=== PATIENT | male | born 1940 | race Caucasian/White ===

== ENCOUNTER 2016-12-14 08:04 | Emergency (ER) | payer MEDICARE ==
[2016-12-14 08:22] VITALS: BP 169/84
--- NOTE | 2016-12-14 08:47 | UC ---
Ronal Gonzáles Anna, scribed for [facility]Merlin MD on 12/14/16 at 0833 . Back Pain HPI - HPI Summary HPI Summary: MD Note Patient was seen at [facility] 02/16/2016 with back and chest discomfort. Dx was lumbar strain and costochondritis. EKG showed NSR with a first-degree AV block (MA prolongation), with no ischemia. Vital signs stable. Afebrile. BP noted at 169/ 84.Pt has chronic HTN. Pulse ox 99. 6/10 right lumbar discomfort. Daily wine, nonsmoker. Pt has COPD and asthma. Nurses Note BENDING OVER TO DO LAUNDRY A WK AGO, HAD PAIN RIGHT LOWER BACK. BENT OVER AGAIN A COUPLE DAYS LATER AND PAIN RETURNED, AND HAS BEEN THERE SINCE. PT STATES PAIN INCREASES WITH STANDING UP STRAIGHT, FEELS BETTER WHEN LAYIN IN BED. WAS GOING TO THE GYM PRIOR TO HAVING PAIN. HAS HAD BACK PAIN 3 DIFFERENT TIMES IN PAST COUPLE MONTHS. In Room Note Patient is a 76 y/o [place] [facility] [place] with sudden onset of acute on chronic RIGHT LOWER BACK PAIN that began six days ago. He describes the pain as aching with severity 6/10. He was bending over to do laundry when he felt sudden pain in his right lumbar region. He did not hear a pop. He did not experience any burning pain down his leg. The pain was originally experienced as spasms. The pain is EXACERBATED BY STANDING, ARCHING BACK, OR WALKING. The pain is ALLEVIATED BY LYING DOWN. The pain is not alleviated by the use of ibuprofen. He has some abdominal pain. Denies CP, SOB, n/v/d, or changes in urination. He has been fighting a COUGH since . He has a history of back pain. - History of Current Complaint Stated Complaint: BACK PAIN Time Seen by Provider: 12/14/16 08:16 Hx Obtained From: Patient Onset/Duration: Sudden Onset, Still Present Pain Intensity: 6 Pain Scale Used: 0-10 Numeric - Allergies/Home Medications Allergies/Adverse Reactions: Allergies Allergy/AdvReac Type Severity Reaction Status Date / Time CAT DANDER Allergy Unknown Uncoded 04/28/16 09:03 Reaction Details PMH/Surg Hx/FS Hx/Imm Hx Endocrine History Of: Reports: Dyslipidemia Denies: Diabetes, Thyroid Disease, Hyperthyroidism, Hypothyroidism Cardiovascular History Of: Reports: Hypertension - pt. states controlled on meds Denies: Cardiac Disorders, Pacemaker/ICD, Myocardial Infarction, Congestive Heart Failure, Atrial Fibrillation, Deep Vein Thrombosis, Bleeding Disorders Respiratory History Of: Reports: COPD - takes advir., Asthma Denies: Bronchitis, Pneumonia, Pulmonary Embolism GI/ History Of: Denies: Gastroesophageal Reflux, Ulcer, Gastrointestinal Bleed, Gall Bladder Disease, Kidney Stones, Diverticulitis, Renal Disease, Urosepsis Neurological History Of: Denies: TIA, CVA, Dementia, Seizures, Migraine Psychological History Of: Denies: Anxiety, Depression, Bipolar Disorder, Schizophrenia, Post Traumatic Stress Disorder Cancer History Of: Denies: Lung Cancer, Colorectal Cancer, Breast Cancer, Prostate Cancer, Cervical Cancer Other History Of: Negative For: HIV, Hepatitis B, Hepatitis C - Surgical History Surgical History: Yes Surgery Procedure, Year, and Place: LEFT INGUNIAL HERNIA 2008, [facility]. RIGHT ORCHIECTOMY, , [facility]. DEVIATED SEPTUM. ,. prostatectomy 2011. [facility] - Family History Known Family History: Positive: Cardiac Disease, Hypertension, Other - [place] Negative: Blood Disorder - Social History Occupation: Retired Alcohol Use: Daily Alcohol Amount: wine/dinner Substance Use Type: None Smoking Status (MU): Never Smoked Tobacco - Immunization History Most Recent Tetanus Shot: 10/15/1994 Review of Systems Constitutional: Negative Skin: Negative Eyes: Negative ENT: Negative Respiratory: Cough Cardiovascular: Negative Gastrointestinal: Abdominal Pain Genitourinary: Negative Motor: Negative Neurovascular: Negative Musculoskeletal: Myalgia Neurological: Negative Psychological: Negative All Other Systems Reviewed And Are Negative: Yes Physical Exam Triage Information Reviewed: Yes Appearance: Well-Appearing, No Pain Distress, Well-Nourished Vital Signs: Initial Vital Signs Temp 98.7 F 12/14/16 08:15 Pulse 82 12/14/16 08:15 Resp 18 12/14/16 08:15 BP 169/84 12/14/16 08:15 Pulse Ox 99 12/14/16 08:15 Vital Signs Reviewed: Yes Eyes: Positive: Conjunctiva Clear ENT: Positive: Hearing grossly normal, Pharynx normal, TMs normal. Negative: Muffled/hoarse voice Neck: Positive: Supple, No Lymphadenopathy Respiratory: Positive: Chest non-tender, Lungs clear, Normal breath sounds, No respiratory distress Cardiovascular: Positive: RRR, No Murmur Abdomen Description: Positive: No Organomegaly, Soft, Other: - Light, diffuse abd tenderness Bowel Sounds: Positive: Present Musculoskeletal: Positive: Strength Intact, Other: - PAUL. No CVA tenderness. Pain upon arching back. Neurological: Positive: Alert Psychological: Positive: Age Appropriate Behavior Skin: Negative: rashes Back Pain Course/Dx - Course Course Of Treatment: Discussed use of hot and cold to alleviate pain. Patient reports Acetaminophen upsets his stomach. Recommended use of ibuprofen. - Differential Dx/Diagnosis Differential Diagnosis/HQI/PQRI: Other - nerve impingement v. muscle strain Provider Diagnoses: R. Lumbar muscle strain Discharge - Discharge Plan Condition: Stable Disposition: HOME Prescriptions: Dexamethasone TAB* [Decadron TAB*] 4 mg PO DAILY #4 tab Patient Education Materials: Low Back Strain (ED), Lower Back Exercises (ED) Referrals: Luis Armando Ortega MD [Primary Care Provider] - Additional Instructions: WE DISCUSSED: BACK STRAIN Your pain is consistent with a muscle injury to your right lower back. Re-check at any time for increased pain or disability or if this condition is not improving in 7 days. I have prescribed Physical Therapy as well as two days of dexamethasone. Use warm moist heat in the morning; ice massage to the area if it starts to hurt during the day. Try alternating ice/heat/ice for pain. PHYSICAL THERAPY REFERRAL: This is your referral to a physical therapist. +++Reduction of Swelling (EGS, US, ice as needed) +++Pain Reduction (EGS, US, ice as needed) +++[facility] -Your diagnosis is: strain/sprain/right lumbar region. -Duration of therapy: two weeks or until resolution of condition. -Your physician re-evaluation needs to be arranged by you. The documentation as recorded by the Ronal alejo Anna accurately reflects the service I personally performed and the decisions made by me, Merlin Hooper MD.
== END 2016-12-14 08:52 | disposition home or self-care (01) ==
LOC: UCEAST 08:04
DX: S39.012A Strain of muscle, fascia and tendon of lower back, initial encounter (principal); X50.1XXA Overexertion from prolonged static or awkward postures, initial encounter; Y93.E2 Activity, laundry; Y92.9 Unspecified place or not applicable; I10 Essential (primary) hypertension; J44.9 Chronic obstructive pulmonary disease, unspecified
CPT/HCPCS: 99212; G0463

== ENCOUNTER → 2018-08-21 07:41 | Day surgery (SDC) | payer MEDICARE ==
[~2018-08-21 07:41] MED LIST: Bacitracin OINTMENT* 0.5% 0.5 oz TUBE ONE; Buffered Lidocaine 0.9% SYRIN* 5 ML/SYR SYRINGE INTRADERM ONE; Ciprofloxacin 0.3% OPTH.SOL* 2.5 ML BTL ONE; Dexamethasone IV* 4 MG/ML 1 ML (4 MG) ONE; EPHEDrine (Pressors)* 50 MG/ML VIAL ONE; EPINEPHRINE 1 MG/ML 1 ML VIAL ONE; Famotidine IV* 10 MG/ML 2 ML (20 mg) IV ONE; Famotidine IV* 10 MG/ML 2 ML (20 mg) ONE; Gelfoam 12-7 ADSORBABL SPONGE* 1 EA SPONGE ONE; Glycopyrrolate IV* 0.2 MG/ML 1 ML VIAL ONE; KETAMINE HCL* 50 MG/ML 10 ML VIAL ONE; Levalbuterol 0.63MG/3ML NEB* UNIT OF USE INH ONE; Lidocaine 2% EPI 1:200000 MPF*10-20 ML VIAL ONE; Lidocaine 2% PF * 5 ML VIAL ONE; Midazolam* 1 MG/ML 5 ML VIAL (5 MG) ONE; Naloxone* 0.4 MG/ML 1 ML VIAL IV PRN; Ondansetron INJ* 2 MG/ML VIAL IV PRN; Ondansetron INJ* 2 MG/ML VIAL ONE; Propofol* 10 MG/ML 20 ML BTL IV PUSH ONE; fentaNYL* 50 MCG/ML 2 ML VIAL (100 MCG VIAL) IV PRN; fentaNYL* 50 MCG/ML 2 ML VIAL (100 MCG VIAL) ONE; oxyCODONE/Acetamin 5/325 MG* TAB PO PRN
[2018-08-21 11:20] VITALS: BP 147/73
--- NOTE | 2018-08-22 00:33 | OP ---
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 OPERATIVE PROCEDURE: Tympanoplasty with cartilage graft. 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 DESCRIPTION OF PROCEDURE: The patient was taken to the operating room. General anesthetic was given. The patient was intubated with LMA. Left ear was then prepped and draped in the usual fashion. The ear was examined on microscope. Perforation was noted. Margins were freshened up by using a small pick. The middle ear was then packed with Gelfoam. Next, we turned our attention to the conchal cartilage. A small incision was made and a cartilage graft was harvested. This was split to make a thin 0.15 mm thickness graft. The residual cartilage was then replaced back in the geoffrey and the wound was closed in single layer using Vicryl and Ethibond glue. Then we turned our attention to the middle ear again. Using an underlay technique, the cartilage graft was placed. It was sandwiched between additional pieces of Gelfoam which were lateral to the graft. Once adequate packing was carried out, I instilled ofloxacin drops in the ears. The patient was then awakened and sent to recovery room in stable condition. Instrument and sponge counts correct. Blood loss minimal. [id number]/[facility] #: [id number] [facility] HOSPITALJustina
== END | disposition home or self-care (01) ==
LOC: OR 07:41
PROVIDERS: ATTEND Otolaryngology
DX: H72.02 Central perforation of tympanic membrane, left ear (principal); I10 Essential (primary) hypertension; J45.909 Unspecified asthma, uncomplicated
CPT/HCPCS: A9270-GY; J1100; J2250; J2405; J2704; J3010

== ENCOUNTER 2019-04-30 13:08 | Emergency (ER) | payer MEDICARE ==
[2019-04-30 13:36] VITALS: BP 135/62
--- NOTE | 2019-04-30 14:43 | UC ---
Skin Complaint HPI - HPI Summary HPI Summary: 78-year-old male who presents with erythema to anterior right thigh beginning 6 days ago. Patient states he think was bit by a mosquito and noticed worsening of the redness and itchiness to his right leg. Patient denies being bit by a tick or noticing any ticks on his body. Denies fevers or chills, no knee pain or pain with ambulation. Patient came into the ED today because of worsening redness to the area. Patient not tried anything at home. - History of Current Complaint Chief Complaint: UCSkin Time Seen by Provider: 04/30/19 14:39 Stated Complaint: SKIN ISSUE Hx Obtained From: Patient Pain Intensity: 3 - Allergy/Home Medications Allergies/Adverse Reactions: Allergies Allergy/AdvReac Type Severity Reaction Status Date / Time CAT DANDER Allergy Unknown Uncoded 04/30/19 13:35 Reaction Details Home Medications: Home Medications Dextromethorphan-Guaifenesin [Dextromethorphan/Guaifene 10-100 mg/5Ml] 1 timothy PO 04/30/19 [History] Fluticasone HFA 110 mcg(NF) [Flovent HFA 110 mcg(NF)] 1 puff INH BID 04/30/19 [ History Confirmed 04/30/19] PMH/Surg Hx/FS Hx/Imm Hx Previously Healthy: Yes Endocrine History: Dyslipidemia Cardiovascular History: Hypertension Other History Of: Negative For: HIV, Hepatitis B, Hepatitis C - Surgical History Surgical History: Yes Surgery Procedure, Year, and Place: LEFT [place] [facility] [place], , [facility] [place]VI[place] SEPT[place]. ,. prostatectomy 2011. [facility]. [facility] 1958 - Family History Known Family History: Positive: Cardiac Disease, Hypertension, Other - [place] Negative: Blood Disorder - Social History Occupation: Retired Lives: With Family Alcohol Use: Daily Alcohol Amount: wine/dinner Substance Use Type: None Smoking Status (MU): Never Smoked Tobacco Have You Smoked in the Last Year: No - Immunization History Most Recent Tetanus Shot: 10/15/1994 Review of Systems All Other Systems Reviewed And Are Negative: Yes Constitutional: Positive: Negative. Negative: Fever, Fatigue Skin: Positive: Rash Respiratory: Negative: Shortness Of Breath Cardiovascular: Positive: Negative Gastrointestinal: Positive: Negative Musculoskeletal: Positive: Negative. Negative: Calf Tenderness, Decreased ROM, Edema, Myalgia Is Patient Immunocompromised?: No Physical Exam - Summary Physical Exam Summary: Constitutional: Well-developed, Well-nourished, Alert. (-) Distressed HENT: Normocephalic; Atraumatic Eyes: Conjunctiva normal Neck: Musculoskeletal ROM normal neck. Cardio: Rhythm regular, rate normal, Heart sounds normal; Intact distal pulses; Radial pulses are 2+ and symmetric. (-) Murmur Pulmonary/Chest wall: Effort normal. (-) Respiratory distress, (-) Wheezes, (-) Rales Abd: Soft, (-) tenderness, Musculoskeletal: Full range of motion of right knee without tenderness. No effusions. Skin: 10x8 cm area of erythema without induration or fluctuance to the anterior right thigh. Neuro: Alert, Oriented x3 Vital Signs: Initial Vital Signs Temp 98.8 F 04/30/19 13:30 Pulse 91 04/30/19 13:30 Resp 18 04/30/19 13:30 BP 135/62 04/30/19 13:30 Pulse Ox 100 04/30/19 13:30 Course/Dx - Course Course Of Treatment: 78-year-old male presents with 6 days of worsening erythema to the anterior right thigh. Patient denies pain to the area but states it is sometimes warm and itchy.Thinks he was bit by a mosquito. Patient denies seeing any ticks on his body. No fevers or chills at home patient is well-appearing suspect that erythema is secondary to cellulitis will treat with Keflex 4 times a day for 7 days. He has had a Follow-up on Sunday w PCP. Told to return to urgent care, ED or primary care for worsening of erythema by Sunday. Outlined area of erythema with skin marker. - Diagnoses Provider Diagnosis: Cellulitis Discharge - Sign-Out/Discharge Documenting (check all that apply): Patient Departure, Post-Discharge Follow Up All imaging exams completed and their final reports reviewed: No Studies - Discharge Plan Condition: Stable Disposition: HOME Prescriptions: Cephalexin CAP* [Keflex CAP*] 500 mg PO QID 7 Days #28 cap Patient Education Materials: Cellulitis (ED) Referrals: James Be MD [Primary Care Provider] - 2 Days Additional Instructions: Please take your antibiotic, Keflex 4 times a day. Return for increasing redness, swelling of your leg or if you feel worse. Follow up with your doctor as scheduled on Sunday. - Billing Disposition and Condition Condition: STABLE Disposition: Home
== END 2019-04-30 15:14 | disposition home or self-care (01) ==
LOC: UCEAST 13:08
DX: L03.115 Cellulitis of right lower limb (principal); E78.5 Hyperlipidemia, unspecified; I10 Essential (primary) hypertension
CPT/HCPCS: 99212; G0463

== ENCOUNTER 2022-10-26 12:27 | Inpatient (IN) ==
[2022-10-26] MEDS ORDERED: Calcium Carb (TUMS) 500 mg CHEW TAB PO ONE (19:03)
[2022-10-26] MEDS ORDERED: Polyethylene Glycol 3350 17 GM PACKET PO PRN (19:28)
[2022-10-26] MEDS: Enoxaparin 40 MG/0.4 ML SYR SUBCUT SCH (21:05)
[2022-10-27 07:00] LABS: Hematocrit 28 % (42-52); Hemoglobin 9.4 g/dL (14.0-18.0); Mean Corpuscular HGB Conc 34 g/dL (31-36); Mean Corpuscular Hemoglobin 33 pg (27-31); Mean Corpuscular Volume 96 fL (80-94); Mean Platelet Volume 8.3 fL (7.4-10.4); Platelet Count 158 10^3/uL (150-450); Red Cell Distribution Width 14 % (10-15); White Blood Count 6.7 10^3/uL (3.5-10.8)
[2022-10-27 07:18] LABS: Calcium 7.8 mg/dL (8.6-10.3); Creatinine, Serum 1.58 mg/dL (0.67-1.17); Potassium 3.9 mmol/L (3.5-5.0); eGFR CKD-EPI 43.9 (>60)
[2022-10-27] MEDS: CMCS: Simvastatin 10 mg TAB (NF) PO SCH (08:22)
[2022-10-27] MEDS: Fluticasone NASAL SPRAY 50MCG 16 gm SPRAY BTL INTRANASAL SCH (08:22)
[2022-10-27] MEDS: Polyethylene Glycol 3350 17 GM PACKET PO SCH (08:23)
[2022-10-27] MEDS: Ondansetron 4 mg VIAL 2 MG/ML 2 ml VIAL IV PRN (10:20)
[2022-10-27 17:18] LABS: PCO2 Arterial 27 mmHg (35-45); PO2 Arterial 145 mmHg (80-100)
[2022-10-27 17:35] LABS: ABS Lymphocytes 0.5 10^3/ul (1.0-4.8); ABS Monocytes 0.7 10^3/ul (0-0.8); ABS Neutrophils 6.6 10^3/ul (1.5-7.7); Eosinophil % 0.1 %; Hematocrit 28 % (42-52); Lymphocyte % 6.2 %; Mean Corpuscular HGB Conc 33 g/dL (31-36); Mean Corpuscular Hemoglobin 31 pg (27-31); Mean Corpuscular Volume 97 fL (80-94); Platelet Count 156 10^3/uL (150-450); Red Blood Count 2.86 10^6 /uL (4.18-5.48); Red Cell Distribution Width 15 % (10-15); White Blood Count 7.8 10^3/uL (3.5-10.8)
[2022-10-27 17:53] LABS: Albumin 2.9 g/dL (3.2-5.2); Albumin/Globulin Ratio 1.5 (1-3); Calcium 7.7 mg/dL (8.6-10.3); Creatinine, Serum 1.52 mg/dL (0.67-1.17); Globulin 1.9 g/dL (2-4); Magnesium 1.5 mg/dL (1.9-2.7); Potassium 3.9 mmol/L (3.5-5.0); Total Bilirubin 0.5 mg/dL (0.2-1.0); Total Protein 4.8 g/dL (6.4-8.9)
[2022-10-27] MEDS ORDERED: Magnesium Sulfate IV 1GM/100ML 1 GM/100 ML BAG IV ONE (17:55)
[2022-10-27] MEDS ORDERED: NS 0.9% 500 ml BAG 500 ML IV ONE (17:57)
[2022-10-27 18:56] LABS: High Sensitivity Troponin 1 Hr 10 pg/mL (<20)
[2022-10-27] MEDS: Mometasone 220 MCG MDI INH SCH (19:20)
[2022-10-27] MEDS: Enoxaparin 40 MG/0.4 ML SYR SUBCUT SCH (21:23)
[2022-10-28 06:28] LABS: ABS Lymphocytes 0.7 10^3/ul (1.0-4.8); ABS Monocytes 0.9 10^3/ul (0-0.8); ABS Neutrophils 4.8 10^3/ul (1.5-7.7); Eosinophil % 0.5 %; Hematocrit 26 % (42-52); Hemoglobin 8.3 g/dL (14.0-18.0); Lymphocyte % 10.1 %; Mean Corpuscular HGB Conc 33 g/dL (31-36); Mean Corpuscular Hemoglobin 31 pg (27-31); Mean Corpuscular Volume 96 fL (80-94); Mean Platelet Volume 7.7 fL (7.4-10.4); Platelet Count 142 10^3/uL (150-450); Red Blood Count 2.66 10^6 /uL (4.18-5.48); Red Cell Distribution Width 15 % (10-15); White Blood Count 6.4 10^3/uL (3.5-10.8)
[2022-10-28 07:32] LABS: Albumin 2.7 g/dL (3.2-5.2); Calcium 7.6 mg/dL (8.6-10.3); Creatinine, Serum 1.48 mg/dL (0.67-1.17); Magnesium 1.7 mg/dL (1.9-2.7); Potassium 4.1 mmol/L (3.5-5.0); Total Protein 4.5 g/dL (6.4-8.9); eGFR CKD-EPI 47.5 (>60)
[2022-10-28 07:33] LABS: Albumin/Globulin Ratio 1.5 (1-3); Globulin 1.8 g/dL (2-4); Total Bilirubin 0.5 mg/dL (0.2-1.0)
[2022-10-28] MEDS: Polyethylene Glycol 3350 17 GM PACKET PO SCH (08:40)
[2022-10-28] MEDS: CMCS: Simvastatin 10 mg TAB (NF) PO SCH (08:41)
[2022-10-28] MEDS: Fluticasone NASAL SPRAY 50MCG 16 gm SPRAY BTL INTRANASAL SCH (08:42)
[2022-10-28] MEDS: Mometasone 220 MCG MDI INH SCH (19:22)
[2022-10-28] MEDS: Enoxaparin 40 MG/0.4 ML SYR SUBCUT SCH (19:54)
[2022-10-28] MEDS ORDERED: Benzocaine (plain) Lozenge 15 MG PO PRN ×2 (20:11→20:35)
[2022-10-28] MEDS ORDERED: Calcium Carb (TUMS) 500 mg CHEW TAB PO ONE (23:25)
[2022-10-29 06:31] LABS: Hematocrit 24 % (42-52); Hemoglobin 7.8 g/dL (14.0-18.0); Mean Corpuscular HGB Conc 32 g/dL (31-36); Mean Corpuscular Hemoglobin 31 pg (27-31); Mean Corpuscular Volume 97 fL (80-94); Platelet Count 142 10^3/uL (150-450); Red Blood Count 2.52 10^6 /uL (4.18-5.48); Red Cell Distribution Width 15 % (10-15); White Blood Count 5.3 10^3/uL (3.5-10.8)
[2022-10-29 07:41] LABS: ABS Eosinophils 0.1 10^3/ul (0-0.6); ABS Lymphocytes 0.8 10^3/ul (1.0-4.8); ABS Monocytes 0.9 10^3/ul (0-0.8); ABS Neutrophils 3.6 10^3/ul (1.5-7.7); Eosinophil % 1.5 %; Lymphocyte % 14.7 %; Nucleated Red Blood Cells % 0.2
[2022-10-29] MEDS: CMCS: Simvastatin 10 mg TAB (NF) PO SCH (09:42)
[2022-10-29] MEDS: Polyethylene Glycol 3350 17 GM PACKET PO SCH (09:42)
[2022-10-29] MEDS: Fluticasone NASAL SPRAY 50MCG 16 gm SPRAY BTL INTRANASAL SCH (09:43)
[2022-10-29] MEDS: Mometasone 220 MCG MDI INH SCH (18:36)
[2022-10-29] MEDS: Enoxaparin 40 MG/0.4 ML SYR SUBCUT SCH (20:23)
[2022-10-30 06:16] LABS: ABS Eosinophils 0.1 10^3/ul (0-0.6); ABS Monocytes 0.9 10^3/ul (0-0.8); ABS Neutrophils 3.4 10^3/ul (1.5-7.7); Eosinophil % 1.2 %; Hematocrit 24 % (42-52); Hemoglobin 7.9 g/dL (14.0-18.0); Lymphocyte % 18.2 %; Mean Corpuscular HGB Conc 33 g/dL (31-36); Mean Corpuscular Hemoglobin 32 pg (27-31); Mean Corpuscular Volume 96 fL (80-94); Mean Platelet Volume 7.9 fL (7.4-10.4); Nucleated Red Blood Cells % 0.1; Platelet Count 157 10^3/uL (150-450); Red Blood Count 2.49 10^6 /uL (4.18-5.48); Red Cell Distribution Width 15 % (10-15); White Blood Count 5.4 10^3/uL (3.5-10.8)
[2022-10-30 06:37] LABS: Calcium 7.5 mg/dL (8.6-10.3); Creatinine, Serum 1.48 mg/dL (0.67-1.17); eGFR CKD-EPI 47.5 (>60)
[2022-10-30] MEDS: Mometasone 220 MCG MDI INH SCH ×2 (07:58→20:02)
[2022-10-30] MEDS: CMCS: Simvastatin 10 mg TAB (NF) PO SCH (09:11)
[2022-10-30] MEDS: Fluticasone NASAL SPRAY 50MCG 16 gm SPRAY BTL INTRANASAL SCH (09:11)
[2022-10-30] MEDS: Polyethylene Glycol 3350 17 GM PACKET PO SCH (09:11)
[2022-10-30] MEDS ORDERED: Al Hydrox/Mg Hydrox/Simet LIQ 30 ML UDC PO ONE (19:48)
[2022-10-30] MEDS: Enoxaparin 40 MG/0.4 ML SYR SUBCUT SCH (19:57)
[2022-10-30] MEDS: Ondansetron 4 mg VIAL 2 MG/ML 2 ml VIAL IV PRN (19:58)
[2022-10-31] MEDS: Mometasone 220 MCG MDI INH SCH ×2 (07:44→19:33)
[2022-10-31] MEDS: Polyethylene Glycol 3350 17 GM PACKET PO SCH (10:00)
[2022-10-31] MEDS: CMCS: Simvastatin 10 mg TAB (NF) PO SCH (10:00)
[2022-10-31] MEDS: Fluticasone NASAL SPRAY 50MCG 16 gm SPRAY BTL INTRANASAL SCH ×2 (10:01→19:56)
[2022-10-31] MEDS ORDERED: Calcium Carb (TUMS) 500 mg CHEW TAB PO PRN (19:19)
[2022-10-31] MEDS: Enoxaparin 40 MG/0.4 ML SYR SUBCUT SCH (19:54)
[2022-11-01] MEDS: Mometasone 220 MCG MDI INH SCH ×2 (07:47→19:30)
[2022-11-01] MEDS: CMCS: Simvastatin 10 mg TAB (NF) PO SCH (08:53)
[2022-11-01] MEDS: Polyethylene Glycol 3350 17 GM PACKET PO SCH (08:53)
[2022-11-01] MEDS: Enoxaparin 40 MG/0.4 ML SYR SUBCUT SCH (20:28)
[2022-11-01] MEDS: Fluticasone NASAL SPRAY 50MCG 16 gm SPRAY BTL INTRANASAL SCH (20:29)
[2022-11-02] MEDS: Mometasone 220 MCG MDI INH SCH (07:13)
[2022-11-02] MEDS: Polyethylene Glycol 3350 17 GM PACKET PO SCH (09:11)
[2022-11-02] MEDS: CMCS: Simvastatin 10 mg TAB (NF) PO SCH (09:11)
[2022-11-02 10:10] LABS: Rapid COVID-19 Molecular Undetected (Undetected)
[2022-11-02 12:49] VITALS: BP 145/70
== END 2022-11-02 14:00 | DRG 535 ==
LOC: ED 12:27 → EDHOLD 12:27 → SUATTDRO 19:28 → OBSVTOIN 19:28 → SUATTDRO 19:30 → EDHOLD 22:17 → MED 22:28
PROVIDERS: ADMIT Internal Medicine; ATTEND Internal Medicine

== ENCOUNTER 2022-12-20 12:58 | Inpatient (IN) ==
[2022-12-20 13:42] LABS: ABS Lymphocytes 0.8 10^3/ul (1.0-4.8); ABS Monocytes 0.8 10^3/ul (0-0.8); ABS Neutrophils 9.4 10^3/ul (1.5-7.7); Eosinophil % 0.1 %; Hematocrit 31 % (42-52); Lymphocyte % 7.4 %; Mean Corpuscular HGB Conc 32 g/dL (31-36); Mean Corpuscular Hemoglobin 30 pg (27-31); Mean Corpuscular Volume 94 fL (80-94); Mean Platelet Volume 7.7 fL (7.4-10.4); Platelet Count 267 10^3/uL (150-450); Red Blood Count 3.29 10^6 /uL (4.18-5.48); Red Cell Distribution Width 15 % (10-15); White Blood Count 11.1 10^3/uL (3.5-10.8)
[2022-12-20 14:23] LABS: Albumin/Globulin Ratio 1.1 (1-3); Calcium 8.3 mg/dL (8.6-10.3); Creatinine, Serum 1.54 mg/dL (0.67-1.17); Globulin 2.8 g/dL (2-4); Magnesium 1.5 mg/dL (1.9-2.7); Potassium 4.4 mmol/L (3.5-5.0); Total Bilirubin 0.5 mg/dL (0.2-1.0); Total Protein 5.8 g/dL (6.4-8.9); eGFR CKD-EPI 45.3 (>60)
[2022-12-20] MEDS ORDERED: Iodixanol (CONTRAST) 320 MG/ML 100 ML SDV IV ONE (14:28)
[2022-12-20 14:46] LABS: TSH Ultra Thyroid Stim Horm 3.08 mcIU/mL (0.34-5.60)
[2022-12-20 14:51] LABS: Urine Appearance Clear; Urine Bilirubin Negative (Negative); Urine Blood Negative (Negative); Urine Color Yellow; Urine Glucose Negative (Negative); Urine Ketones Negative (Negative); Urine Nitrite Negative (Negative); Urine Protein Negative (Negative); Urine Specific Gravity 1.015 (1.002-1.030); Urine Urobilinogen Negative (Negative)
[2022-12-20 15:21] LABS: High Sensitivity Troponin 1 Hr 6 pg/mL (<20)
[2022-12-20] MEDS ORDERED: Vancomycin 1,000 MG in NS 0.9% 250 ml 250 ML IVPB ONE (16:36)
[2022-12-20] MEDS ORDERED: Piperacillin/Tazobac ADVAN 3.375 GM in NS 0.9% 100 ml BAG 100 ML IV ONE (16:36)
[2022-12-20] MEDS ORDERED: Enoxaparin 30 MG/0.3 ML SYR SUBCUT SCH (17:00)
[2022-12-20] MEDS: ZOSYN 3.375 GM Q8H per EXTENDED INFUSION IV SCH (21:27)
[2022-12-21] MEDS: ZOSYN 3.375 GM Q8H per EXTENDED INFUSION IV SCH (05:10)
[2022-12-21] MEDS: Mometasone 220 MCG MDI INH SCH ×2 (05:30→20:11)
[2022-12-21] MEDS ORDERED: Vancomycin per Pharmacy 1 EA NOTE FOLLOW UP SCH (06:00)
[2022-12-21] MEDS ORDERED: Zosyn per Pharmacy NOTE FOLLOW UP SCH (06:00)
[2022-12-21 06:18] LABS: ABS Eosinophils 0.1 10^3/ul (0-0.6); ABS Monocytes 0.5 10^3/ul (0-0.8); ABS Neutrophils 6.6 10^3/ul (1.5-7.7); Eosinophil % 0.7 %; Hematocrit 28 % (42-52); Hemoglobin 8.8 g/dL (14.0-18.0); Mean Corpuscular HGB Conc 31 g/dL (31-36); Mean Corpuscular Hemoglobin 31 pg (27-31); Mean Corpuscular Volume 101 fL (80-94); Platelet Count 208 10^3/uL (150-450); Red Blood Count 2.81 10^6 /uL (4.18-5.48); Red Cell Distribution Width 15 % (10-15); White Blood Count 8.3 10^3/uL (3.5-10.8)
[2022-12-21 06:30] LABS: Calcium 7.5 mg/dL (8.6-10.3); Magnesium 1.5 mg/dL (1.9-2.7); Potassium 4.6 mmol/L (3.5-5.0)
[2022-12-21 06:36] LABS: Creatinine, Serum 1.48 mg/dL (0.67-1.17); eGFR CKD-EPI 47.5 (>60)
[2022-12-21] MEDS: CMCS: Simvastatin 10 mg TAB (NF) PO SCH (09:55)
[2022-12-21] MEDS: Fluticasone NASAL SPRAY 50MCG 16 gm SPRAY BTL INTRANASAL SCH (09:56)
[2022-12-21 11:01] LABS: C Reactive Protein 18.84 mg/L (<8.01)
[2022-12-21] MEDS: cefTRIAXone 2 gm/50 mL D5W 2 GM/50 ML BAG IV SCH (16:48)
[2022-12-21] MEDS: Vancomycin 1000 MG in NS 0.9% 250 ML IVPB SCH (18:41)
[2022-12-22] MEDS ORDERED: Lactated Ringers 1000 ml BAG 1,000 ML IV SCH (06:00)
[2022-12-22] MEDS ORDERED: Levalbuterol 0.63MG/3ML NEB UNIT OF USE INH ONE ×3 (07:00→10:21)
[2022-12-22] MEDS ORDERED: Famotidine IV 10 MG/ML 2 ml VIAL (20 mg) IV ONE (07:00)
[2022-12-22] MEDS ORDERED: Magnesium Sulf 4 GM/100 ML IV 4,000 MG/100 ML BAG IVPB ONE (07:02)
[2022-12-22 07:05] LABS: Calcium 7.7 mg/dL (8.6-10.3); Creatinine, Serum 1.57 mg/dL (0.67-1.17); Magnesium 1.5 mg/dL (1.9-2.7); Potassium 4.5 mmol/L (3.5-5.0); eGFR CKD-EPI 44.3 (>60)
[2022-12-22] MEDS ORDERED: Lidocaine 2% PF 5 ML VIAL ONE ×2 (07:32→08:08)
[2022-12-22] MEDS ORDERED: Benzocaine/Butamben/Tetracain (CETACAINE - SINGLE USE) 5 gm TOPICAL ONE (07:32)
[2022-12-22] MEDS ORDERED: Lidocaine 1% MPF 5 ML VIAL ONE (07:33)
[2022-12-22] MEDS ORDERED: fentaNYL 100 mcg/2 ml 50 MCG/ML VIAL ONE (08:08)
[2022-12-22] MEDS ORDERED: Dexamethasone IV 4 MG/ML VIAL 1 ml VIAL ONE (08:08)
[2022-12-22] MEDS ORDERED: Ondansetron 4 mg VIAL 2 MG/ML 2 ml VIAL ONE (08:08)
[2022-12-22] MEDS ORDERED: Rocuronium 50 mg VIAL 10 mg/ml 5 ml VIAL (50 mg) ONE (08:08)
[2022-12-22] MEDS ORDERED: Midazolam 2 mg/2 ml VIAL 1 mg/ml 2 ml VIAL (2 mg) ONE (08:08)
[2022-12-22] MEDS ORDERED: Propofol 10 MG/ML 20 ML BTL ONE (08:08)
[2022-12-22 08:26] LABS: ABS Basophils 0.1 10^3/ul (0-0.2); ABS Eosinophils 0.1 10^3/ul (0-0.6); ABS Lymphocytes 1.2 10^3/ul (1.0-4.8); ABS Monocytes 0.8 10^3/ul (0-0.8); ABS Neutrophils 7.6 10^3/ul (1.5-7.7); Eosinophil % 0.7 %; Hematocrit 29 % (42-52); Hemoglobin 9.8 g/dL (14.0-18.0); Lymphocyte % 12.3 %; Mean Corpuscular HGB Conc 33 g/dL (31-36); Mean Corpuscular Hemoglobin 32 pg (27-31); Mean Corpuscular Volume 95 fL (80-94); Mean Platelet Volume 7.5 fL (7.4-10.4); Platelet Count 267 10^3/uL (150-450); Red Blood Count 3.07 10^6 /uL (4.18-5.48); Red Cell Distribution Width 15 % (10-15); White Blood Count 9.8 10^3/uL (3.5-10.8)
[2022-12-22 08:30] LABS: INR 1.51 (0.88-1.18)
[2022-12-22] MEDS ORDERED: Famotidine IV 10 MG/ML 2 ml VIAL (20 mg) ONE (08:45)
[2022-12-22] MEDS ORDERED: Sugammadex 500 MG/5 ML 5 ml VIAL IV PUSH ONE (09:56)
[2022-12-22] MEDS ORDERED: Esmolol 10 MG/ML 10 ML (100 mg) IV ONE (10:00)
[2022-12-22] MEDS ORDERED: fentaNYL 100 mcg/2 ml 50 MCG/ML VIAL IV PRN (10:25)
[2022-12-22] MEDS ORDERED: Levalbuterol 0.63MG/3ML NEB UNIT OF USE INH PRN (10:25)
[2022-12-22] MEDS ORDERED: Naloxone 0.4 mg VIAL 0.4 mg/ml 1 ml VIAL IV PRN (10:25)
[2022-12-22] MEDS ORDERED: Ondansetron 4 mg VIAL 2 MG/ML 2 ml VIAL IV PRN (10:25)
[2022-12-22] MEDS: CMCS: Simvastatin 10 mg TAB (NF) PO SCH (12:38)
[2022-12-22] MEDS: Fluticasone NASAL SPRAY 50MCG 16 gm SPRAY BTL INTRANASAL SCH (12:38)
[2022-12-22] MEDS: cefTRIAXone 2 gm/50 mL D5W 2 GM/50 ML BAG IV SCH (16:24)
[2022-12-22] MEDS: Vancomycin 1000 MG in NS 0.9% 250 ML IVPB SCH (17:52)
[2022-12-22] MEDS: Mometasone 220 MCG MDI INH SCH (19:41)
[2022-12-23 10:29] LABS: Hematocrit 31 % (42-52); Hemoglobin 10.1 g/dL (14.0-18.0); Mean Corpuscular HGB Conc 33 g/dL (31-36); Mean Corpuscular Hemoglobin 31 pg (27-31); Mean Corpuscular Volume 94 fL (80-94); Mean Platelet Volume 7.9 fL (7.4-10.4); Platelet Count 294 10^3/uL (150-450); Red Blood Count 3.28 10^6 /uL (4.18-5.48); Red Cell Distribution Width 15 % (10-15); White Blood Count 11.5 10^3/uL (3.5-10.8)
[2022-12-23] MEDS: Fluticasone NASAL SPRAY 50MCG 16 gm SPRAY BTL INTRANASAL SCH (11:06)
[2022-12-23] MEDS: CMCS: Simvastatin 10 mg TAB (NF) PO SCH (11:06)
[2022-12-23 11:16] LABS: Calcium 8.2 mg/dL (8.6-10.3); Creatinine, Serum 1.64 mg/dL (0.67-1.17); Magnesium 2.3 mg/dL (1.9-2.7); Potassium 4.8 mmol/L (3.5-5.0)
[2022-12-23 11:32] LABS: RBC Morphology Normal (Normal)
[2022-12-23 11:33] LABS: ABS Eosinophils 0.1 10^3/ul (0-0.6); ABS Lymphocytes 1.1 10^3/ul (1.0-4.8); ABS Monocytes 0.6 10^3/ul (0-0.8); ABS Neutrophils 9.7 10^3/ul (1.5-7.7); Eosinophil % 0.6 %; Lymphocyte % 9.5 %
[2022-12-23] MEDS ORDERED: Albuterol/Ipratropium NEB.SOL (2.5/0.5 MG) 3 ML NEB.SOLN INH ONE (13:06)
[2022-12-23] MEDS ORDERED: Albuterol HFA INHALER 8 gm MDI INH PRN (13:12)
[2022-12-23] MEDS ORDERED: Senna TAB 8.6 mg TAB PO PRN (13:13)
[2022-12-23] MEDS ORDERED: Magnesium Hydroxide LIQ 30 ML UDC PO PRN (13:13)
[2022-12-23] MEDS: cefTRIAXone 2 gm/50 mL D5W 2 GM/50 ML BAG IV SCH (16:23)
[2022-12-23] MEDS ORDERED: Lidocaine PATCH 5% PATCH TRANSDERM PRN (16:31)
[2022-12-23] MEDS ORDERED: Benzocaine (plain) Lozenge 15 MG PO PRN (17:30)
[2022-12-23] MEDS ORDERED: Vancomycin Trough Check NOTE FOLLOW UP ONE (17:30)
[2022-12-23] MEDS: Vancomycin 1000 MG in NS 0.9% 250 ML IVPB SCH (19:41)
[2022-12-23] MEDS: Mometasone 220 MCG MDI INH SCH (20:37)
[2022-12-24] MEDS: Mometasone 220 MCG MDI INH SCH ×2 (06:59→20:06)
[2022-12-24 07:21] LABS: ABS Basophils 0.1 10^3/ul (0-0.2); ABS Eosinophils 0.1 10^3/ul (0-0.6); ABS Lymphocytes 1.4 10^3/ul (1.0-4.8); ABS Monocytes 0.9 10^3/ul (0-0.8); ABS Neutrophils 8.1 10^3/ul (1.5-7.7); Eosinophil % 1.3 %; Hematocrit 31 % (42-52); Hemoglobin 10.2 g/dL (14.0-18.0); Lymphocyte % 13.5 %; Mean Corpuscular HGB Conc 33 g/dL (31-36); Mean Corpuscular Hemoglobin 32 pg (27-31); Mean Corpuscular Volume 95 fL (80-94); Mean Platelet Volume 7.5 fL (7.4-10.4); Platelet Count 278 10^3/uL (150-450); Red Blood Count 3.23 10^6 /uL (4.18-5.48); Red Cell Distribution Width 15 % (10-15); White Blood Count 10.6 10^3/uL (3.5-10.8)
[2022-12-24 07:53] LABS: Anion Gap 4 mmol/L (2-11); Blood Urea Nitrogen 25 mg/dL (6-24); CO2 Carbon Dioxide 26 mmol/L (22-32); Chloride 101 mmol/L (101-111); Creatinine, Serum 1.66 mg/dL (0.67-1.17); Glucose 102 mg/dL (70-100); Sodium 131 mmol/L (135-145); eGFR CKD-EPI 41.4 (>60)
[2022-12-24] MEDS: CMCS: Simvastatin 10 mg TAB (NF) PO SCH (09:47)
[2022-12-24] MEDS: Fluticasone NASAL SPRAY 50MCG 16 gm SPRAY BTL INTRANASAL SCH (09:47)
[2022-12-24] MEDS ORDERED: Enoxaparin 30 MG/0.3 ML SYR SUBCUT SCH (12:00)
[2022-12-24] MEDS: Cefepime 2 GM in Dextrose 2 GM/50 ML BAG IV SCH (14:50)
[2022-12-24 17:14] LABS: Folate 15.37 ng/mL (5.90-24.80)
[2022-12-24 17:15] LABS: Vitamin B12 > 1450 pg/mL (180-914)
[2022-12-24] MEDS: Vancomycin 1000 MG in NS 0.9% 250 ML IVPB SCH (20:19)
[2022-12-25] MEDS: Cefepime 2 GM in Dextrose 2 GM/50 ML BAG IV SCH ×2 (01:16→13:56)
[2022-12-25 06:38] LABS: ABS Eosinophils 0.1 10^3/ul (0-0.6); ABS Lymphocytes 1.2 10^3/ul (1.0-4.8); ABS Monocytes 0.6 10^3/ul (0-0.8); ABS Neutrophils 5.7 10^3/ul (1.5-7.7); Eosinophil % 1.4 %; Hematocrit 32 % (42-52); Hemoglobin 10.2 g/dL (14.0-18.0); Lymphocyte % 15.4 %; Mean Corpuscular HGB Conc 32 g/dL (31-36); Mean Corpuscular Hemoglobin 31 pg (27-31); Mean Corpuscular Volume 98 fL (80-94); Mean Platelet Volume 7.5 fL (7.4-10.4); Nucleated Red Blood Cells % 0.1; Platelet Count 260 10^3/uL (150-450); Red Blood Count 3.27 10^6 /uL (4.18-5.48); Red Cell Distribution Width 15 % (10-15); White Blood Count 7.6 10^3/uL (3.5-10.8)
[2022-12-25] MEDS: Mometasone 220 MCG MDI INH SCH ×2 (07:02→19:44)
[2022-12-25 07:04] LABS: Calcium 7.9 mg/dL (8.6-10.3); Creatinine, Serum 1.81 mg/dL (0.67-1.17); Potassium 5.1 mmol/L (3.5-5.0); eGFR CKD-EPI 37.3 (>60)
[2022-12-25] MEDS: Fluticasone NASAL SPRAY 50MCG 16 gm SPRAY BTL INTRANASAL SCH (08:53)
[2022-12-25] MEDS: CMCS: Simvastatin 10 mg TAB (NF) PO SCH (08:53)
[2022-12-26] MEDS: Cefepime 2 GM in Dextrose 2 GM/50 ML BAG IV SCH (01:19)
[2022-12-26 06:28] LABS: ABS Basophils 0.1 10^3/ul (0-0.2); ABS Eosinophils 0.2 10^3/ul (0-0.6); ABS Lymphocytes 1.4 10^3/ul (1.0-4.8); ABS Neutrophils 6.9 10^3/ul (1.5-7.7); Eosinophil % 1.7 %; Hematocrit 31 % (42-52); Hemoglobin 10.6 g/dL (14.0-18.0); Lymphocyte % 14.5 %; Mean Corpuscular HGB Conc 34 g/dL (31-36); Mean Corpuscular Hemoglobin 32 pg (27-31); Mean Corpuscular Volume 94 fL (80-94); Mean Platelet Volume 7.3 fL (7.4-10.4); Platelet Count 272 10^3/uL (150-450); Red Blood Count 3.32 10^6 /uL (4.18-5.48); Red Cell Distribution Width 14 % (10-15); White Blood Count 9.6 10^3/uL (3.5-10.8)
[2022-12-26 06:56] LABS: Calcium 8.2 mg/dL (8.6-10.3); Creatinine, Serum 1.84 mg/dL (0.67-1.17); Potassium 4.4 mmol/L (3.5-5.0); eGFR CKD-EPI 36.6 (>60)
[2022-12-26] MEDS: Mometasone 220 MCG MDI INH SCH ×2 (07:06→18:28)
[2022-12-26] MEDS: CMCS: Simvastatin 10 mg TAB (NF) PO SCH (08:37)
[2022-12-26] MEDS: Fluticasone NASAL SPRAY 50MCG 16 gm SPRAY BTL INTRANASAL SCH (08:37)
[2022-12-26] MEDS ORDERED: Furosemide 20 mg/2 ml IV VIAL IV ONE (10:00)
[2022-12-26] MEDS ORDERED: Furosemide 40 mg/4 ml IV VIAL IV SCH (10:00)
[2022-12-26] MEDS ORDERED: Cefepime 2 GM in Dextrose 2 GM/50 ML BAG IV SCH (10:00)
[2022-12-27] MEDS ORDERED: Cefepime 2 GM in NS 0.9% 50 ML 50 ML IVPB SCH (01:00)
[2022-12-27] MEDS: Mometasone 220 MCG MDI INH SCH ×2 (07:32→19:33)
[2022-12-27 08:29] LABS: Creatinine, Serum 2.06 mg/dL (0.67-1.17)
[2022-12-27] MEDS: CMCS: Simvastatin 10 mg TAB (NF) PO SCH (10:12)
[2022-12-27] MEDS: Fluticasone NASAL SPRAY 50MCG 16 gm SPRAY BTL INTRANASAL SCH (10:13)
[2022-12-27] MEDS ORDERED: Lactated Ringers 1000 ml BAG 1,000 ML IV SCH (11:00)
[2022-12-27 16:28] LABS: Calcium 8.1 mg/dL (8.6-10.3); Creatinine, Serum 2.19 mg/dL (0.67-1.17); Potassium 4.1 mmol/L (3.5-5.0); eGFR CKD-EPI 29.7 (>60)
[2022-12-27] MEDS ORDERED: Vancomycin Trough Check NOTE FOLLOW UP ONE (17:30)
[2022-12-28 07:53] LABS: CO2 Carbon Dioxide 20 mmol/L (22-32); Calcium 7.8 mg/dL (8.6-10.3); Chloride 102 mmol/L (101-111); Magnesium 1.8 mg/dL (1.9-2.7); Sodium 132 mmol/L (135-145)
[2022-12-28] MEDS: Mometasone 220 MCG MDI INH SCH ×2 (07:56→19:35)
[2022-12-28 07:58] LABS: Blood Urea Nitrogen 29 mg/dL (6-24); Creatinine, Serum 2.02 mg/dL (0.67-1.17); Glucose 103 mg/dL (70-100); eGFR CKD-EPI 32.7 (>60)
[2022-12-28 07:59] LABS: Anion Gap 10 mmol/L (2-11)
[2022-12-28] MEDS: CMCS: Simvastatin 10 mg TAB (NF) PO SCH (09:11)
[2022-12-28] MEDS: Potassium Chlor 20 meq TAB.ER PO SCH (09:12)
[2022-12-28] MEDS: Fluticasone NASAL SPRAY 50MCG 16 gm SPRAY BTL INTRANASAL SCH (09:12)
[2022-12-28 20:36] LABS: PSA Screening Total 0.107 ng/mL (0-4.000)
[2022-12-29 07:52] LABS: Calcium 7.9 mg/dL (8.6-10.3); Potassium 4.4 mmol/L (3.5-5.0)
[2022-12-29 07:57] LABS: Creatinine, Serum 1.62 mg/dL (0.67-1.17); eGFR CKD-EPI 42.6 (>60)
[2022-12-29] MEDS: Potassium Chlor 20 meq TAB.ER PO SCH (08:32)
[2022-12-29] MEDS: CMCS: Simvastatin 10 mg TAB (NF) PO SCH (08:33)
[2022-12-29] MEDS: Fluticasone NASAL SPRAY 50MCG 16 gm SPRAY BTL INTRANASAL SCH (08:33)
[2022-12-29] MEDS: Mometasone 220 MCG MDI INH SCH ×2 (08:37→19:46)
[2022-12-29 18:35] LABS: Magnesium 1.7 mg/dL (1.9-2.7)
[2022-12-30 07:07] LABS: Creatinine, Serum 1.53 mg/dL (0.67-1.17); Magnesium 1.7 mg/dL (1.9-2.7); Potassium 4.5 mmol/L (3.5-5.0); eGFR CKD-EPI 45.7 (>60)
[2022-12-30] MEDS ORDERED: Magnesium Sulfate 2 gm BAG 2 GM/50 ML BAG IVPB ONE (07:39)
[2022-12-30] MEDS: Mometasone 220 MCG MDI INH SCH ×2 (07:44→19:43)
[2022-12-30] MEDS: Potassium Chlor 20 meq TAB.ER PO SCH (09:15)
[2022-12-30] MEDS: Fluticasone NASAL SPRAY 50MCG 16 gm SPRAY BTL INTRANASAL SCH (09:15)
[2022-12-30] MEDS: CMCS: Simvastatin 10 mg TAB (NF) PO SCH (09:16)
[2022-12-31] MEDS: Mometasone 220 MCG MDI INH SCH ×2 (08:11→19:30)
[2022-12-31] MEDS ORDERED: Magnesium Sulfate 2 gm BAG 2 GM/50 ML BAG IVPB ONE (10:42)
[2022-12-31] MEDS: CMCS: Simvastatin 10 mg TAB (NF) PO SCH (10:50)
[2022-12-31] MEDS: Fluticasone NASAL SPRAY 50MCG 16 gm SPRAY BTL INTRANASAL SCH (10:51)
[2022-12-31] MEDS: Potassium Chlor 20 meq TAB.ER PO SCH (13:14)
[2022-12-31 22:32] LABS: Rapid COVID-19 Molecular Undetected (Undetected)
[2023-01-01] MEDS: Mometasone 220 MCG MDI INH SCH (07:55)
[2023-01-01] MEDS: Fluticasone NASAL SPRAY 50MCG 16 gm SPRAY BTL INTRANASAL SCH (08:28)
[2023-01-01] MEDS: CMCS: Simvastatin 10 mg TAB (NF) PO SCH (08:28)
[2023-01-01 10:09] VITALS: BP 118/56
== END 2023-01-01 11:30 | DRG 177 ==
LOC: ED 12:58 → EDHOLD 16:59 → SUATTDRO 16:59 → MEDTELE 20:47
PROVIDERS: ADMIT Internal Medicine; ATTEND Internal Medicine